=== PATIENT | male | born 1975 | race Caucasian/White ===

== ENCOUNTER → 2016-02-15 | Outpatient (CLI) | payer OTHER ==
--- NOTE | 2016-02-15 23:50 | MR ---
EXAMINATION TYPE: MR lumbar spine wo con DATE OF EXAM: 02/15/2016 10:19 PM COMPARISON: 03/03/2014 HISTORY: Reoccurring Low Back Pain / Rt Leg pain, Prior MRI in pacs TECHNIQUE: Multiplanar, multisequence images of the lumbar spine were acquired. FINDINGS: Lumbar vertebra have normal alignment. Disc spaces are fairly well-maintained. There is slight narrow ing at L4-5 discs. Lumbar nerve roots appear normal. The neural foramina appear within normal limits. Posterior elements appear intact. Sacroiliac joints appear normal. There is no paraspinal mass. Ther e is no compression fracture. There is no spinal stenosis. There is minimal posterior disc bulging at all levels of the lumbar spine without impingement on the spinal canal to any extent. IMPRESSION: Negative MR scan of the lumbar spine. Minor degenerative disc changes at L4-5. No spinal stenosis or disc herniation. No change compared to last exam.
== END | disposition home or self-care (01) ==
LOC: RADMRIMAIN 21:37
PROVIDERS: ATTEND Internal Medicine
DX: M51.36 Other intervertebral disc degeneration, lumbar region (principal)
CPT/HCPCS: 72148

== ENCOUNTER → 2016-08-25 | Outpatient (CLI) | payer OTHER ==
--- NOTE | 2016-08-25 09:15 | CT ---
EXAMINATION TYPE: CT brain wo con DATE OF EXAM: 08/25/2016 COMPARISON: NONE HISTORY: Headaches CT DLP: 1021.1 mGycm. Automated Exposure Control for Dose Reduction was Utilized. TECHNIQUE: CT scan of the head is performed without contrast. FINDINGS: There is no acute intracranial hemorrhage, mass effect, or midline shift identified. The ventricles and sulci are within normal limits in size. Alanis-white matter differentiation is preserve d. The globes are intact and the visualized sinuses are clear. IMPRESSION: No acute intracranial hemorrhage, mass effect, or midline shift is seen. Unremarkable st udy.
== END | disposition home or self-care (01) ==
LOC: RADCTMAIN 08:45
PROVIDERS: ATTEND Internal Medicine
DX: R51 Headache (principal)
CPT/HCPCS: 70450

== ENCOUNTER → 2017-05-03 | Outpatient (CLI) | payer OTHER ==
--- NOTE | 2017-05-04 12:30 | US ---
EXAMINATION TYPE: US liver DATE OF EXAM: 05/03/2017 COMPARISON: NONE CLINICAL HISTORY: R94.5 Elevated Liver Test. Hepatitis C EXAM MEASUREMENTS: Liver Length: 17.3 cm Gallbladder Wall: 0.2 cm CBD: 0.3 cm Right Kidney: 12.0 x 4.2 x 5.7 cm Pancreas: Obscured by bowel gas Liver: upper limits of normal in size and echotexture is coarse Gallbladder: no evidence of stones Evidence for sonographic Alva's sign: no CBD: appears wnl as visualized Right Kidney: no evidence of hydronephrosis or mass and cortical medullary differentiation is mainta ined There is no ascites. IMPRESSION: Exam somewhat limited. Consider hepatic steatosis, hepatocellular disease.
== END ==
LOC: RADUSWWP 16:09
PROVIDERS: ATTEND Internal Medicine
DX: R94.5 Abnormal results of liver function studies (principal)
CPT/HCPCS: 76705

== ENCOUNTER 2017-10-10 09:30 | Emergency (ER) | payer OTHER ==
[2017-10-10] MEDS ORDERED: RABIES IMMUNE GLOB 150 UNIT/ML 10 ML VIAL IM ONE ×2 (09:48→10:15)
[2017-10-10] MEDS ORDERED: RABIES VACCINE (PCEC) 2.5 UNIT KIT IM ONE (09:48)
--- NOTE | 2017-10-10 09:52 | ED ---
General Adult HPI - General Chief complaint: Animal Bite Stated complaint: bat bite Time Seen by Provider: 10/10/17 09:43 Source: patient, RN notes reviewed Mode of arrival: ambulatory Limitations: no limitations - History of Present Illness Initial comments: Patient 42-year-old male presenting to the emergency room today with a chief complaint of a bite to the right middle finger from about that occurred yesterday. He states he caught a bat in his basement and was trying to release outside. He states that it did bite because he believes he got scared his right middle finger. Patient states did not draw blood initially but later did see some small blood when he tried to milk out the area. Patient states that he did follow-up with his family physician and was advised come here to emergency room for rabies vaccination. Patient states they updated tetanus today. Denies any other complaints. Patient denies any recent fever, chills, shortness of breath, chest pain, back pain, abdominal pain, nausea or vomiting, numbness or tingling, or any other complaints. - Related Data Allergies Allergy/AdvReac Type Severity Reaction Status Date / Time Bleach (Sodium Hypochlorite) Allergy Unknown Verified 10/10/17 09:40 Review of Systems ROS Statement: Those systems with pertinent positive or pertinent negative responses have been documented in the HPI. ROS Other: All systems not noted in ROS Statement are negative. Past Medical History Past Medical History: No Reported History History of Any Multi-Drug Resistant Organisms: MRSA Date of last positivie culture/infection: 2005 MDRO Source:: LEFT LEG Past Surgical History: No Surgical Hx Reported, Orthopedic Surgery Past Psychological History: No Psychological Hx Reported Smoking Status: Never smoker Past Alcohol Use History: Occasional Past Drug Use History: None Reported General Exam - General Exam Comments Initial Comments: General: The patient is awake and alert, in no distress, and does not appear acutely ill. Eye: extra-ocular movements are intact. No nystagmus. There is normal conjunctiva bilaterally. No signs of icterus. Ears, nose, mouth and throat: There are moist mucous membranes and no oral lesions. Neck: The neck is supple. Musculoskeletal: Normal ROM, no tenderness. Strength 5/5. Sensation intact. Pulses equal bilaterally 2+. Neurological: A&O x 3. CN II-XII intact, There are no obvious motor or sensory deficits. Coordination appears grossly intact. Speech is normal. Skin: Skin is warm and dry and no rashes or lesions are noted. Psychiatric: Cooperative, appropriate mood & affect, normal judgment. Limitations: no limitations Course Vital Signs 10/10/17 09:35 Temperature 97.8 F Pulse Rate 96 Respiratory 16 Rate Blood Pressure 121/79 O2 Sat by Pulse 100 Oximetry Medical Decision Making - Medical Decision Making 42-year-old male who did get bitten by a bat to the right middle finger yesterday. Patient was given rabies vaccine and immunoglobulin here in emergency room. His tetanus was previously updated. Patient will be discharged home. He'll be given a prescription for repeat rabies vaccine on days 3, 7, 14. Patient advised return for any other concerns. Disposition Clinical Impression: Bite by animal Disposition: HOME SELF-CARE Condition: Good Instructions: Animal Bite (ED) Additional Instructions: Please follow-up and have rabies vaccine administered on days 3, 7, and 14 as discussed. Please return to emergency room for any other concerns. Is patient prescribed a controlled substance at d/c from ED?: No Referrals: Rudolph Chandler MD [Primary Care Provider] - 1-2 days Time of Disposition: 11:09
[2017-10-10] MEDS ORDERED: RABIES IMMUNE GLOBULIN 150 UNIT/ML IM ONE (10:00)
[2017-10-10] MEDS ORDERED: RABIES IMMUNE GLOB 300 UNIT/ML 1 ML VIAL IM ONE ×2 (10:15→10:30)
[2017-10-10 11:23] VITALS: BP 138/78; PULSE 82; RESP 18; TEMP 98.8
== END 2017-10-10 11:21 | disposition home or self-care (01) ==
LOC: EC 09:30
DX: S61.252A Open bite of right middle finger without damage to nail, initial encounter (principal); Z91.048 Other nonmedicinal substance allergy status; Z86.14 Personal history of Methicillin resistant Staphylococcus aureus infection; Z23 Encounter for immunization; W55.81XA Bitten by other mammals, initial encounter; Y93.89 Activity, other specified; Y92.89 Other specified places as the place of occurrence of the external cause
CPT/HCPCS: 90375; 90471; 90675; 96372; 99283